=== PATIENT | female | born 1960 | race African-American/Black ===

== ENCOUNTER 2023-08-06 11:15 | Inpatient (IN) | payer OTHER ==
[2023-08-06] MEDS ORDERED: BENZONATATE 200 MG CAPSULE PO PRN (13:28)
[2023-08-06] MEDS ORDERED: IBUPROFEN 400 MG TABLET (FP) PO PRN (13:28)
[2023-08-06] MEDS ORDERED: NALOXONE HCL (KLOXXADO) 8 MG SPRAY NS PRN (13:28)
[2023-08-06] MEDS ORDERED: guaiFENesin 600 MG TABLET.ER (FP) PO PRN (13:28)
[2023-08-06] MEDS ORDERED: IBUPROFEN 600 MG TABLET (FP) PO PRN (13:28)
[2023-08-06] MEDS ORDERED: NALOXONE HCL 0.4 MG/ML VIAL IM PRN (13:28)
[2023-08-06] MEDS ORDERED: LOPERAMIDE HCL 2 MG CAPSULE PO PRN (13:28)
[2023-08-06] MEDS ORDERED: hydrOXYzine PAMOATE 25 MG CAPSULE (FP) PO PRN (13:28)
[2023-08-06] MEDS ORDERED: BENZOCAINE/MENTHOL (CHLORASEPTIC ) LOZENGE MM PRN (13:28)
[2023-08-06] MEDS ORDERED: MAG HYDROX/AL HYDROX/SIMETH 30 ML UNIT-DOSE CUP PO PRN (13:28)
[2023-08-06] MEDS: LISINOPRIL 20 MG TABLET PO ONE (15:00)
[2023-08-06] MEDS: METHOCARBAMOL 500 MG TABLET PO PRN (15:00)
[2023-08-06] MEDS: HYDROCHLOROTHIAZIDE 12.5 MG CAPSULE (FP) PO ONE (15:00)
[2023-08-06] MEDS: amLODIPine BESYLATE 10 MG TABLET (FP) PO ONE (15:00)
[2023-08-06] MEDS: GABAPENTIN 100 MG CAPSULE PO SCH (22:37)
[2023-08-06] MEDS: MELATONIN 5 MG TABLETS PO SCH (22:37)
[2023-08-06] MEDS: ATORVASTATIN CA 20 MG TABLET (FP) PO SCH (22:37)
[2023-08-06] MEDS: THIAMINE 100 MG TABLET PO SCH (22:38)
[2023-08-07] MEDS: ASPIRIN 81 MG CHEWABLE TABLETS PO SCH (09:20)
[2023-08-07] MEDS: amLODIPine BESYLATE 10 MG TABLET (FP) PO SCH (09:21)
[2023-08-07] MEDS: HYDROCHLOROTHIAZIDE 12.5 MG CAPSULE (FP) PO SCH (09:21)
[2023-08-07] MEDS: LISINOPRIL 20 MG TABLET PO SCH (09:22)
[2023-08-07] MEDS: DOLUTEGRAVIR SODIUM 50 MG TABLET (NON-FORMULARY) PO SCH (09:22)
[2023-08-07] MEDS: PRENATAL VITAMINS W/ FOLIC ACID TABLET (FP) PO SCH (09:22)
[2023-08-07] MEDS ORDERED: PATIENT'S OWN MEDICATION (NON-FORMULARY) (Dolutegravir Sodium/Lamivudine [Dovato 50-300 Mg PO SCH (10:00)
[2023-08-07] MEDS ORDERED: PATIENT'S OWN MEDICATION (NON-FORMULARY) (Lisinopril/Hydrochlorothiazide [Lisinopril-Hctz PO SCH (10:00)
[2023-08-07 11:32] LABS: HEMATOCRIT 37.4 % (32.4-45.2); HEMOGLOBIN 12.7 GM/dL (10.7-15.3); MCH 37.9 pg (25.7-33.7); MCHC 33.9 g/dl (32.0-36.0); MEAN CELL VOLUME 111.8 fl (80-96); MEAN PLT VOLUME 8.9 fl (7.5-11.1); PLATELET COUNT 244 10^3/uL (134-434); RBC 3.34 M/mm3 (3.60-5.2); RDW 13.3 % (11.6-15.6)
[2023-08-07 11:58] LABS: POTASSIUM 4.3 mmol/L (3.5-5.1)
[2023-08-07 12:02] LABS: ALBUMIN 3.6 g/dl (3.4-5.0); BLOOD UREA NITROGEN 43.7 mg/dL (7-18); CALCIUM 9.5 mg/dL (8.5-10.1)
[2023-08-07 12:05] LABS: CREATININE 2.6 mg/dL (0.55-1.3)
[2023-08-07 12:07] LABS: TOT PROT 6.9 g/dl (6.4-8.2)
[2023-08-07 12:21] LABS: BILIRUBIN,TOTAL 0.6 mg/dL (0.2-1)
[2023-08-07 12:30] LABS: SYPHILIS W/ RPR CONF NON-REACTIVE (NONREACTIVE)
[2023-08-07] MEDS: HYDROCORTISONE 2.5% TOPICAL CREAM 30 GM TUBE TP SCH (22:16)
[2023-08-07] MEDS: MAGNESIUM HYDROX 2400MG/30ML ORAL SUSPENSION 30 ML CUP PO PRN (22:17)
[2023-08-08 08:34] LABS: PH,URINE 6.5 (5.0-8.0); URINE APPEARANCE CLEAR; URINE BILIRUBIN NEGATIVE (NEGATIVE); URINE COLOR YELLOW; URINE GLUCOSE (UA) NEGATIVE (NEGATIVE); URINE KETONE NEGATIVE (NEGATIVE); URINE LEUK ESTERASE NEGATIVE (NEGATIVE); URINE NITRITE NEGATIVE (NEGATIVE); URINE PROTEIN NEGATIVE (NEGATIVE); URINE UROBILINOGEN 0.2 mg/dL (0.2-1.0)
[2023-08-08] MEDS: POLYETHYLENE GLYCOL (HEALTHYLAX) 3350 17 GM PACKET PO PRN (17:02)
[2023-08-09 23:05] VITALS: BMI 21.3
[2023-08-10] MEDS: LACTULOSE 20 GM/30 ML UDC (FOR ORAL USE ONLY) PO ONE (18:39)
[2023-08-12] MEDS: ACETAMINOPHEN 325 MG TABLET (FP) PO PRN (04:19)
[2023-08-13] MEDS: PANTOPRAZOLE 20 MG TABLET PO SCH (21:52)
[2023-08-15 09:13] VITALS: BP 164/85; PULSE 85; RESP 18; TEMP 98.2
== END 2023-08-15 10:05 | disposition home or self-care (01) | DRG 772 ==
LOC: YASAS 11:15 → Y3NR 14:03
PROVIDERS: ADMIT Allergy & Immunology; ATTEND Psychiatry & Neurology Pain Medicine
PROC: HZ42ZZZ Group Counseling for Substance Abuse Treatment, Cognitive-Behavioral (ICD-10-PCS; principal; 2023-08-06)
DX: F14.20 Cocaine dependence, uncomplicated (principal); F17.210 Nicotine dependence, cigarettes, uncomplicated; Z21 Asymptomatic human immunodeficiency virus [HIV] infection status; E78.5 Hyperlipidemia, unspecified; I10 Essential (primary) hypertension; N17.9 Acute kidney failure, unspecified
CPT/HCPCS: 36415; 80053; 80305; 80307; 81003; 81025; 85027; 86780; 86803; 87811; 93005; 93010

== ENCOUNTER 2023-08-09 18:30 | Emergency (ER) | payer OTHER ==
[2023-08-09 18:53] VITALS: RESP 18; BMI 19.3
[2023-08-09] MEDS: SODIUM CHLORIDE 0.9% 500 ML INFUS.BAG IV ONE (20:01)
[2023-08-09 20:18] LABS: BASO % 0.8 % (0-2.0); EOS % 8.5 % (0-4.5); HEMATOCRIT 37.3 % (32.4-45.2); HEMOGLOBIN 12.8 GM/dL (10.7-15.3); LYMPH % 46.3 % (8-40); MCH 38.1 pg (25.7-33.7); MCHC 34.3 g/dl (32.0-36.0); MEAN CELL VOLUME 111.3 fl (80-96); MEAN PLT VOLUME 7.8 fl (7.5-11.1); MONO % 11.9 % (3.8-10.2); NEUT % 32.5 % (42.8-82.8); PLATELET COUNT 241 10^3/uL (134-434); RBC 3.35 M/mm3 (3.60-5.2)
[2023-08-09 20:33] LABS: POTASSIUM 5.1 mmol/L (3.5-5.1)
[2023-08-09 20:36] LABS: ALBUMIN 3.6 g/dl (3.4-5.0); MAGNESIUM 2.4 mg/dL (1.8-2.4)
[2023-08-09 20:39] LABS: CREATININE 1.6 mg/dL (0.55-1.3)
[2023-08-09 20:40] LABS: BILIRUBIN,TOTAL 0.2 mg/dL (0.2-1); TOT PROT 7.2 g/dl (6.4-8.2)
[2023-08-09 21:41] LABS: ANISOCYTOSIS 2+; MACROCYTOSIS 2+; OVALOCYTE 1+
[2023-08-09 21:46] VITALS: BP 118/79; PULSE 60; TEMP 98.1
== END 2023-08-09 21:47 | disposition home or self-care (01) ==
LOC: JER 18:30
DX: R79.89 Other specified abnormal findings of blood chemistry (principal)
CPT/HCPCS: 36415; 80053; 83735; 84100; 85025; 93005; 93010; 99284-25

== ENCOUNTER 2023-12-03 11:56 | Inpatient (IN) | payer OTHER ==
[2023-12-03 13:24] VITALS: BMI 19.7
[2023-12-03] MEDS ORDERED: IBUPROFEN 400 MG TABLET (FP) PO PRN (13:43)
[2023-12-03] MEDS ORDERED: MAGNESIUM HYDROX 2400MG/30ML ORAL SUSPENSION 30 ML CUP PO PRN (13:43)
[2023-12-03] MEDS ORDERED: MAG HYDROX/AL HYDROX/SIMETH 30 ML UNIT-DOSE CUP PO PRN (13:43)
[2023-12-03] MEDS ORDERED: BENZONATATE 200 MG CAPSULE PO PRN (13:43)
[2023-12-03] MEDS ORDERED: POLYETHYLENE GLYCOL (HEALTHYLAX) 3350 17 GM PACKET PO PRN (13:43)
[2023-12-03] MEDS ORDERED: NALOXONE (NARCAN) HCL 4 MG/0.1 ML SPRAY NS PRN (13:43)
[2023-12-03] MEDS ORDERED: NALOXONE HCL 0.4 MG/ML VIAL IM PRN (13:43)
[2023-12-03] MEDS ORDERED: IBUPROFEN 600 MG TABLET (FP) PO PRN (13:43)
[2023-12-03] MEDS ORDERED: LOPERAMIDE HCL 2 MG CAPSULE PO PRN (13:43)
[2023-12-03] MEDS: PRENATAL VITAMINS W/ FOLIC ACID TABLET (FP) PO SCH (14:40)
[2023-12-03 19:17] LABS: EPI CELLS 7 /uL (0-25.1); HYALINE CASTS 0 /uL (0-3.1); PH,URINE 6.5 (5.0-8.0); URINE APPEARANCE CLEAR; URINE BACTERIA >9,000 /uL (0-1359); URINE BILIRUBIN NEGATIVE (NEGATIVE); URINE COLOR YELLOW; URINE GLUCOSE (UA) NEGATIVE (NEGATIVE); URINE KETONE NEGATIVE (NEGATIVE); URINE LEUK ESTERASE TRACE (NEGATIVE); URINE NITRITE POSITIVE (NEGATIVE); URINE PROTEIN NEGATIVE (NEGATIVE); URINE RBC 1 /uL (0-23.9); URINE WBC 57 /uL (0-25.8)
[2023-12-03] MEDS: ATORVASTATIN CA 20 MG TABLET (FP) PO SCH (21:18)
[2023-12-03] MEDS: GABAPENTIN 100 MG CAPSULE PO SCH (21:18)
[2023-12-03] MEDS: MELATONIN 5 MG TABLETS PO SCH (21:18)
[2023-12-03] MEDS: THIAMINE 100 MG TABLET PO SCH (21:18)
[2023-12-04] MEDS: hydrOXYzine PAMOATE 25 MG CAPSULE (FP) PO PRN (06:34)
[2023-12-04] MEDS ORDERED: LISINOPRIL 20 MG TABLET PO SCH (06:45)
[2023-12-04] MEDS: LISINOPRIL 20 MG TABLET PO SCH (07:10)
[2023-12-04] MEDS: amLODIPine BESYLATE 10 MG TABLET (FP) PO SCH (09:29)
[2023-12-04] MEDS: PANTOPRAZOLE 20 MG TABLET PO SCH (09:29)
[2023-12-04] MEDS: ASPIRIN 81 MG CHEWABLE TABLETS PO SCH (09:30)
[2023-12-04] MEDS: DOLUTEGRAVIR SODIUM 50 MG TABLET (NON-FORMULARY) PO SCH (09:32)
[2023-12-04] MEDS ORDERED: PATIENT'S OWN MEDICATION (NON-FORMULARY) (Dolutegravir Sodium/Lamivudine [Dovato 50-300 Mg PO SCH (10:00)
[2023-12-04] MEDS: HYDROCORTISONE 2.5% TOPICAL CREAM 30 GM TUBE TP SCH (11:47)
[2023-12-04] MEDS: guaiFENesin 600 MG TABLET.ER (FP) PO PRN (12:41)
[2023-12-04] MEDS: BENZOCAINE/MENTHOL (CHLORASEPTIC ) LOZENGE MM PRN (12:41)
[2023-12-04 14:29] LABS: HEMATOCRIT 35.6 % (32.4-45.2); HEMOGLOBIN 11.8 GM/dL (10.7-15.3); MCH 36.7 pg (25.7-33.7); MCHC 33.1 g/dl (32.0-36.0); MEAN CELL VOLUME 111.1 fl (80-96); MEAN PLT VOLUME 8.7 fl (7.5-11.1); PLATELET COUNT 211 10^3/uL (134-434); RBC 3.21 M/mm3 (3.60-5.2); RDW 14.6 % (11.6-15.6); WHITE BLOOD COUNT 5.2 K/mm3 (4.0-10.0)
[2023-12-04 14:31] LABS: POTASSIUM 4.8 mmol/L (3.5-5.1)
[2023-12-04 14:34] LABS: CALCIUM 9.4 mg/dL (8.5-10.1)
[2023-12-04 14:35] LABS: ALBUMIN 3.2 g/dl (3.4-5.0); BLOOD UREA NITROGEN 32.8 mg/dL (7-18)
[2023-12-04 14:37] LABS: CREATININE 1.8 mg/dL (0.55-1.3)
[2023-12-04 14:39] LABS: BILIRUBIN,TOTAL 0.4 mg/dL (0.2-1); TOT PROT 6.3 g/dl (6.4-8.2)
[2023-12-04 14:59] LABS: SYPHILIS W/ RPR CONF NON-REACTIVE (NONREACTIVE)
[2023-12-04] MEDS: ACETAMINOPHEN 325 MG TABLET (FP) PO PRN (17:27)
[2023-12-06] MEDS: amLODIPine BESYLATE 10 MG TABLET (FP) PO SCH (06:19)
[2023-12-06] MEDS: CIPROFLOXACIN 500 MG TABLET (RESTRICTED TO ID) PO SCH (18:13)
[2023-12-06] MEDS: SULFAMETHOXAZOLE/TRIMETHOPRIM 800MG/160MG D.S. TABLET PO SCH (18:38)
[2023-12-07 07:12] VITALS: RESP 18
[2023-12-09] MEDS ORDERED: guaiFENesin 600 MG TABLET.ER (FP) PO PRN (10:38)
[2023-12-09] MEDS ORDERED: BENZONATATE 200 MG CAPSULE PO PRN (10:38)
[2023-12-09] MEDS: METHYL SALICYLATE/MENTHOL 30 GM TUBE TP SCH (11:46)
[2023-12-09] MEDS: HYDROCHLOROTHIAZIDE 12.5 MG CAPSULE (FP) PO SCH (11:46)
[2023-12-09] MEDS: BACLOFEN 10 MG TABLET (FP) PO SCH (12:37)
[2023-12-11 07:15] VITALS: TEMP 96.9
[2023-12-11] MEDS: OXYMETAZOLINE 0.05% NASAL SOLUTION 15 ML BOTTLE NS PRN (09:54)
[2023-12-11 12:21] VITALS: BP 133/77; PULSE 68
== END 2023-12-11 13:30 | disposition home or self-care (01) | DRG 772 ==
LOC: YASAS 11:56 → Y5N 14:00
PROVIDERS: ADMIT Psychiatry & Neurology Pain Medicine; ATTEND Psychiatry & Neurology Pain Medicine
PROC: HZ42ZZZ Group Counseling for Substance Abuse Treatment, Cognitive-Behavioral (ICD-10-PCS; principal; 2023-12-03)
DX: F14.20 Cocaine dependence, uncomplicated (principal); F12.20 Cannabis dependence, uncomplicated; F17.210 Nicotine dependence, cigarettes, uncomplicated; Z21 Asymptomatic human immunodeficiency virus [HIV] infection status; E78.5 Hyperlipidemia, unspecified; I10 Essential (primary) hypertension; N17.9 Acute kidney failure, unspecified; N39.0 Urinary tract infection, site not specified; B96.20 Unspecified Escherichia coli [E. coli] as the cause of diseases classified elsewhere; J06.9 Acute upper respiratory infection, unspecified; R94.4 Abnormal results of kidney function studies
CPT/HCPCS: 0241U-QW; 36415; 80053; 80305; 81003; 85027; 86780; 86803; 87086; 87186; 87811; 93005; 93010; J0475

== ENCOUNTER 2024-09-02 11:30 | Inpatient (IN) | payer OTHER ==
[2024-09-02] MEDS ORDERED: LOPERAMIDE HCL 2 MG CAPSULE PO PRN (12:04)
[2024-09-02] MEDS ORDERED: IBUPROFEN 400 MG TABLET (FP) PO PRN (12:04)
[2024-09-02] MEDS ORDERED: POLYETHYLENE GLYCOL (HEALTHYLAX) 3350 17 GM PACKET PO PRN (12:04)
[2024-09-02] MEDS ORDERED: BENZOCAINE/MENTHOL (CHLORASEPTIC ) LOZENGE MM PRN (12:04)
[2024-09-02] MEDS ORDERED: BENZONATATE 200 MG CAPSULE PO PRN (12:04)
[2024-09-02] MEDS ORDERED: NICOTINE POLACRILEX 2 MG GUM BUC PRN (12:04)
[2024-09-02] MEDS ORDERED: MAG HYDROX/AL HYDROX/SIMETH 30 ML UNIT-DOSE CUP PO PRN (12:04)
[2024-09-02] MEDS ORDERED: NALOXONE (NARCAN) HCL 4 MG/0.1 ML SPRAY NS PRN (12:04)
[2024-09-02] MEDS ORDERED: guaiFENesin 600 MG TABLET.ER (FP) PO PRN (12:04)
[2024-09-02] MEDS: amLODIPine BESYLATE 10 MG TABLET (FP) PO SCH (12:48)
[2024-09-02] MEDS: LISINOPRIL 10 MG TABLET PO SCH (12:48)
[2024-09-02] MEDS: HYDROCHLOROTHIAZIDE 25 MG TABLET (FP) PO SCH (12:48)
[2024-09-02] MEDS: PATIENT'S OWN MEDICATION (NON-FORMULARY) (Dolutegravir Sodium/Lamivudine [Dovato 50-300 Mg PO SCH (14:36)
[2024-09-02] MEDS: NALTREXONE HCL 50 MG TABLET PO ONE ×2 (14:36→14:56)
[2024-09-02] MEDS: DOLUTEGRAVIR SODIUM 50 MG TABLET (NON-FORMULARY) PO SCH (14:56)
[2024-09-02] MEDS: MAGNESIUM HYDROX 2400MG/30ML ORAL SUSPENSION 30 ML CUP PO PRN (15:14)
[2024-09-02] MEDS: TUBERCULIN PPD 5 TU/0.1ML VIAL ID ONE (15:50)
[2024-09-02] MEDS: ATORVASTATIN CA 20 MG TABLET (FP) PO SCH (21:20)
[2024-09-02] MEDS: THIAMINE 100 MG TABLET PO SCH (21:20)
[2024-09-02] MEDS: BACLOFEN 10 MG TABLET (FP) PO SCH (21:20)
[2024-09-02] MEDS: GABAPENTIN 100 MG CAPSULE PO SCH (21:20)
[2024-09-03] MEDS: HYDROCHLOROTHIAZIDE 25 MG TABLET (FP) PO SCH (09:21)
[2024-09-03] MEDS: PANTOPRAZOLE 20 MG TABLET PO SCH (09:21)
[2024-09-03] MEDS: amLODIPine BESYLATE 10 MG TABLET (FP) PO SCH (09:21)
[2024-09-03] MEDS: LISINOPRIL 10 MG TABLET PO SCH (09:21)
[2024-09-03] MEDS: ASPIRIN 81 MG CHEWABLE TABLETS PO SCH (09:21)
[2024-09-03] MEDS: ACETAMINOPHEN 325 MG TABLET (FP) PO PRN (09:22)
[2024-09-03] MEDS: NALTREXONE HCL 50 MG TABLET PO SCH (09:22)
[2024-09-03] MEDS: PRENATAL VITAMINS W/ FOLIC ACID TABLET (FP) PO SCH (09:22)
[2024-09-03 10:35] LABS: HEMATOCRIT 39.4 % (34.1-44.9); HEMOGLOBIN 12.7 g/dL (11.2-15.7); MCHC 32.2 g/dl (32.2-35.5); MEAN CELL VOLUME 107.4 fl (79.4-94.8); MEAN PLT VOLUME 11.1 fl (9.4-12.3); PLATELET COUNT 235 x10^3/uL (182-369); RDW 12.2 % (12.4-16.4)
[2024-09-03 11:06] LABS: POTASSIUM 4.4 mmol/L (3.5-5.1)
[2024-09-03 11:18] LABS: ALBUMIN 3.4 g/dl (3.4-5.0); BLOOD UREA NITROGEN 29.2 mg/dL (7-18); CALCIUM 10.2 mg/dL (8.5-10.1)
[2024-09-03 11:22] LABS: BILIRUBIN,TOTAL 0.4 mg/dL (0.2-1); CREATININE 1.7 mg/dL (0.55-1.3); TOT PROT 7.5 g/dl (6.4-8.2)
[2024-09-04 14:43] LABS: EPI CELLS 26 /uL (0-25.1); HYALINE CASTS 1 /uL (0-3.1); PH,URINE 6.5 (5.0-8.0); URINE APPEARANCE CLOUDY; URINE BACTERIA >9,000 /uL (0-1359); URINE BILIRUBIN NEGATIVE (NEGATIVE); URINE COLOR YELLOW; URINE GLUCOSE (UA) NEGATIVE (NEGATIVE); URINE KETONE NEGATIVE (NEGATIVE); URINE LEUK ESTERASE 1+ (NEGATIVE); URINE NITRITE POSITIVE (NEGATIVE); URINE PROTEIN NEGATIVE (NEGATIVE); URINE RBC 5 /uL (0-23.9); URINE UROBILINOGEN 0.2 mg/dL (0.2-1.0); URINE WBC 59 /uL (0-25.8)
[2024-09-04 19:06] LABS: SYPHILIS W/ RPR CONF NON-REACTIVE (NONREACTIVE)
[2024-09-04 19:35] LABS: HCV DIAGNOSTIC IN-HOUSE W/RFLX NON-REACTIVE (NONREACTIVE)
[2024-09-04] MEDS: IBUPROFEN 600 MG TABLET (FP) PO PRN (21:35)
[2024-09-05 06:42] VITALS: PULSE 60
[2024-09-05] MEDS: hydrOXYzine PAMOATE 25 MG CAPSULE (FP) PO PRN (06:56)
[2024-09-05 09:08] VITALS: BP 158/87; RESP 16; TEMP 96.8
[2024-09-05] MEDS: lamiVUDine 150 MG TABLET PO SCH (10:42)
== END 2024-09-05 11:48 | disposition left against medical advice (07) | DRG 770 ==
LOC: YASAS 11:30 → Y3NR 12:45
PROVIDERS: ADMIT Psychiatry & Neurology Pain Medicine; ATTEND Psychiatry & Neurology Pain Medicine
PROC: HZ42ZZZ Group Counseling for Substance Abuse Treatment, Cognitive-Behavioral (ICD-10-PCS; principal; 2024-09-02)
DX: F14.20 Cocaine dependence, uncomplicated (principal); F12.20 Cannabis dependence, uncomplicated; F17.210 Nicotine dependence, cigarettes, uncomplicated; Z21 Asymptomatic human immunodeficiency virus [HIV] infection status; E78.5 Hyperlipidemia, unspecified; G62.9 Polyneuropathy, unspecified; I10 Essential (primary) hypertension; K21.9 Gastro-esophageal reflux disease without esophagitis; Z79.899 Other long term (current) drug therapy
CPT/HCPCS: 36415; 80053; 80305; 80307; 81003; 85027; 86780; 86803; 87811; 93005; 93010; J0475